=== PATIENT | female | born 1965 | race African-American/Black ===

== ENCOUNTER → 2017-03-17 | Day surgery (SDC) | payer OTHER ==
[2017-03-12 13:04] VITALS: BMI 32.8
[~2017-03-17] MED LIST: ACETAMINOPHEN 325 MG TABLET (FP) PO PRN; LACTATED RINGERS SOLUTION 1,000 ML IV SCH; MIDAZOLAM HCL 2 MG/2 ML SINGLE DOSE VIAL ONE; ONDANSETRON 4 MG/2 ML VIAL IVPUSH PRN; oxyCODONE HCL 5 MG TABLET PO PRN
[2017-03-17 09:49] VITALS: TEMP 97.7
[2017-03-17 10:14] VITALS: BP 127/84; PULSE 64
--- NOTE | 2017-03-19 08:33 | OP ---
DATE OF OPERATION: 03/17/2017 PREOPERATIVE DIAGNOSES: 1. Right hand mass. 2. Right long trigger finger. 3. Right ring trigger finger. OPERATIVE PROCEDURES: 1. Right hand mass excision. 2. Right long trigger finger release. 3. Right ring trigger finger release. SURGEON: Bianka Sullivan MD ANESTHESIA: Local with sedation. COMPLICATIONS: None. ESTIMATED BLOOD LOSS: Minimal. INDICATION FOR PROCEDURE: The patient is a 51-year-old female with the above findings, indicated for operative treatment. Risks, benefits, and alternatives were discussed with the patient at length. Proper informed consent was obtained. DESCRIPTION OF PROCEDURE: After proper identification of the patient and correct operative site, patient was brought to the operating room and placed supine on the operating table. All prominences were well padded. Sedation was given by the anesthesiologist. Local anesthesia was given, 2% lidocaine. Right upper extremity was prepped and draped in the usual sterile fashion. A well-padded tourniquet was placed as well as sterile prep. Esmarch bandage to exsanguinate the right upper extremity. Tourniquet was inflated to 250 mmHg. A longitudinal incision was made over the A1 ana m to the long finger and also to the ring finger. Incisions were taken sharply through the skin, with blunt and sharp dissection through the subcutaneous tissues. A1 pulleys were identified and divided longitudinally. Wounds were irrigated with saline and repaired with 5-0 nylon suture. A third incision was made in a elsie-Katharina type of incision over the long finger. This was over the proximal phalanx. Incision was taken sharply through the skin, with blunt and sharp dissection through subcutaneous tissues. The mass was found to be a cystic structure emanating from the flexor tendon sheath. Neurovascular structures were identified and carefully retracted and protected. Mass was excised in whole and sent for pathological evaluation. Wound was irrigated with saline and repaired with a 5-0 nylon suture. Sterile dressings were applied. The patient was reversed from anesthesia and brought to recovery room in stable condition. She tolerated the procedure well. BIANKA SULLIVAN M.D. YOLANDE/[id number]
--- NOTE | 2017-03-23 16:31 | PATH ---
Surgical Pathology Report Patient Name: HENRIK SHAIKH [facility]. Rec. #: [id number] /Age/Gender: 1965 (Age: 51) / F Account: [id number] Location: [facility] Taken: 03/18/2017 Received: 03/18/2017 Reported: 03/23/2017 Physicians: Jericho Du M.D. Specimen(s) Received RIGHT LONG FINGER MASS Clinical History Right long finger mass Final Diagnosis RIGHT LONG FINGER, MASS, REMOVAL: GANGLION CYST. Electronically Signed Christa Silva M.D. Gross Description Received in formalin labeled "right long finger mass," is a 0.9 x 0.6 x 0.5 cm betancourt, intact cystic structure. The specimen is bisected and entirely submitted in one cassette. 03/19/201703/19/2017
== END | disposition home or self-care (01) ==
LOC: FASU 06:41
PROVIDERS: ATTEND Orthopaedic Surgery Hand Surgery
PROC: 0LN70ZZ Release Right Hand Tendon, Open Approach (ICD-10-PCS; 2017-03-17)
PROC: 0LB70ZZ Excision of Right Hand Tendon, Open Approach (ICD-10-PCS; 2017-03-17)
PROC: 0LN70ZZ Release Right Hand Tendon, Open Approach (ICD-10-PCS; principal; 2017-03-17 08:52)
DX: M65.331 Trigger finger, right middle finger (principal); M65.341 Trigger finger, right ring finger; M67.441 Ganglion, right hand
CPT/HCPCS: 88305-TC